=== PATIENT | female | born 1985 | race African-American/Black ===

== ENCOUNTER 2017-06-08 10:01 | Emergency (ER) | payer OTHER, SELFPAY ==
[2017-06-08] MEDS ORDERED: Dexamethasone 4 mg/ml Vial ONE (11:41)
[2017-06-08] MEDS ORDERED: Bicillin LA 1.2 MILLION UNITS/2 ML SYRINGE ONE (11:41)
== END 2017-06-08 12:17 | disposition home or self-care (01) ==
LOC: ERS 10:01
DX: J02.0 Streptococcal pharyngitis (principal)
CPT/HCPCS: 87430; 96372; J0561; J1100

== ENCOUNTER 2017-09-04 16:13 | Emergency (ER) | payer SELFPAY ==
[2017-09-04] MEDS ORDERED: methylPREDNISolone Sod Succ/PF 125 MG/2 ML VIAL ONE (18:46)
== END 2017-09-04 19:06 | disposition home or self-care (01) ==
LOC: ERS 16:13
DX: J20.9 Acute bronchitis, unspecified (principal)
CPT/HCPCS: 96372; J2930

== ENCOUNTER 2017-10-02 09:08 | Emergency (ER) | payer SELFPAY | END 2017-10-02 11:35 | disposition home or self-care (01) | LOC: ERS 09:08 | DX: B34.9 Viral infection, unspecified (principal) | CPT/HCPCS: 87081; 87430; 99283 ==

== ENCOUNTER 2018-02-28 08:43 | Emergency (ER) | payer SELFPAY ==
[2018-02-28] MEDS ORDERED: HYDROcodone/Acetaminophen 5/325 mg Tablet ONE (09:23)
[2018-02-28] MEDS ORDERED: Bicillin LA 1.2 MILLION UNITS/2 ML SYRINGE ONE (09:23)
== END 2018-02-28 10:10 | disposition home or self-care (01) ==
LOC: ERS 08:43
DX: J02.9 Acute pharyngitis, unspecified (principal)
CPT/HCPCS: 87081; 87430; 96372; J0561

== ENCOUNTER 2018-08-08 13:07 | Emergency (ER) | payer BC, SELFPAY ==
[2018-08-08] MEDS ORDERED: Dexamethasone 10 MG/ML VIAL ONE (14:21)
== END 2018-08-08 14:26 | disposition home or self-care (01) ==
LOC: ERS 13:07
DX: J06.9 Acute upper respiratory infection, unspecified (principal)
CPT/HCPCS: 87804; 99283; J1100

== ENCOUNTER 2018-08-27 21:05 | Emergency (ER) | payer BC, SELFPAY ==
[2018-08-27] MEDS ORDERED: Fluorescein Opthalmic Strip ONE (21:48)
[2018-08-27] MEDS ORDERED: Proparacaine 0.5% Opth 15 ML BOT ONE (21:48)
== END 2018-08-27 22:14 | disposition home or self-care (01) ==
LOC: ERS 21:05
DX: S00.81XA Abrasion of other part of head, initial encounter (principal); H11.33 Conjunctival hemorrhage, bilateral; Y33.XXXA Other specified events, undetermined intent, initial encounter
CPT/HCPCS: 99283

== ENCOUNTER 2018-10-02 08:14 | Emergency (ER) | payer BC | END 2018-10-02 09:03 | disposition home or self-care (01) | LOC: ERS 08:14 | DX: M54.5 Low back pain (principal) | CPT/HCPCS: 99283 ==

== ENCOUNTER 2019-02-10 19:21 | Emergency (ER) | payer BC ==
[2019-02-10 20:15] LABS: #Lymphocytes 1.2 thou/uL (1.20-3.40); #Monocytes 0.7 thou/uL (0.11-0.59); %Eosinophils 0.6 % (0.0-10.0); %Lymphocytes 14.8 % (21.0-51.0); %Monocytes 8.7 % (0.0-10.0); %Neutrophils 75.9 % (42.0-75.0); Hemoglobin 11.5 g/dL (12.0-16.0); Mean Corpuscular HGB CONC 33.3 g/dL (32.0-36.0); Mean Corpuscular Hemoglobin 30.4 pg (27.0-31.0); Mean Corpuscular Volume 91.2 fL (78.0-98.0); Mean Platelet Volume 7.7 fL (7.4-10.4); Platelet Count 306 thou/uL (130-400); RBC Distribution Width 11.9 % (11.5-14.5); Red Blood Cell (RBC) Count 3.77 mill/uL (4.20-5.40); White Blood Cell (WBC) Count 7.9 thou/uL (4.8-10.8)
[2019-02-10 20:42] LABS: ALT (SGPT) 15 U/L (8-55); AST (SGOT) 22 U/L (5-34); Albumin 3.9 g/dL (3.5-5.0); Alkaline Phosphatase 79 U/L (40-150); Anion Gap 12 mmol/L (10-20); BUN (Urea Nitrogen) 7 mg/dL (7.0-18.7); Bilirubin, Total 0.7 mg/dL (0.2-1.2); Calc. Creatinine Clearance 0 mL/min (70-130); Calcium 8.9 mg/dL (7.8-10.44); Carbon Dioxide 29 mmol/L (22-29); Chloride 102 mmol/L (98-107); Estimated GFR-MDRD Greater than 90; Globulin 3.1 g/dL (2.4-3.5); Glucose 113 mg/dL (70-105); Potassium 3.5 mmol/L (3.5-5.1); Sodium 139 mmol/L (136-145)
--- NOTE | 2019-02-10 23:47 | ULT ---
EXAM: Bilateral lower extremity venous Doppler HISTORY: bilateral lower extremity edema and pain FINDINGS: Grayscale, color-flow, Doppler evaluation, spectral analysis of the bilateral lower extremities venou s structures is performed with 2-D imaging. The bilateral common femoral, superficial femoral, popliteal, posterior tibial, proximal greater saphenous and profunda femoral veins are imaged. There is normal luminal compressibility, flow, and augmentation in the visualized deep venous structu res of the bilateral lower extremities. IMPRESSION: No evidence of a deep vein thrombosis in the visualized deep venous structures bilaterally lower extr emities.
== END 2019-02-11 00:10 | disposition home or self-care (01) ==
LOC: ERS 19:21
DX: J02.9 Acute pharyngitis, unspecified (principal)
CPT/HCPCS: 36415; 80053; 85025; 85379; 87081; 87430; 93970

== ENCOUNTER 2019-09-12 20:52 | Emergency (ER) | payer BC ==
[2019-09-12] MEDS ORDERED: Ibuprofen 800 MG TAB ONE (21:16)
--- NOTE | 2019-09-12 21:18 | RAD ---
XR Hand Rt 3 View STANDARD HISTORY: Joint pain COMPARISON: None. FINDINGS: Bony mineralization appears normal. Joint spaces are well preserved. No soft tissue finding s. IMPRESSION: Unremarkable right hand.
== END 2019-09-12 21:40 | disposition home or self-care (01) ==
LOC: ERS 20:52
DX: M79.641 Pain in right hand (principal); W22.8XXA Striking against or struck by other objects, initial encounter; Y93.01 Activity, walking, marching and hiking

== ENCOUNTER 2019-12-15 13:11 | Emergency (ER) | payer BC, OTHER | END 2019-12-15 13:13 | disposition home or self-care (01) | LOC: ERS 13:11 | DX: J20.9 Acute bronchitis, unspecified (principal) | CPT/HCPCS: 99283 ==

== ENCOUNTER 2019-12-16 10:52 | Emergency (ER) | payer BC, OTHER | END 2019-12-16 11:31 | disposition home or self-care (01) | LOC: ERS 10:52 | DX: J06.9 Acute upper respiratory infection, unspecified (principal) | CPT/HCPCS: 99281 ==

== ENCOUNTER 2023-05-15 07:52 | Emergency (ER) | payer SELFPAY ==
[2023-05-15 09:04] LABS: SARS-CoV-2 NAA Rapid Test DETECTED (NotDetected)
== END 2023-05-15 09:22 | disposition home or self-care (01) ==
LOC: ERS 07:52
DX: U07.1 COVID-19 (principal)
CPT/HCPCS: 99283; U0002